=== PATIENT | male | born 1985 | race Caucasian/White ===

== ENCOUNTER 2020-10-25 15:21 | Emergency (ER) | payer OTHER ==
[~2020-10-25] VITALS: Ht 185.4 cm; Wt 86.2 kg
[2020-10-25] MEDS ORDERED: ALLERCLEAR10 MG PO (15:57)
== END 2020-10-25 16:59 | disposition home or self-care (01) ==
LOC: ER 15:21
DX: S06.0X9A Concussion with loss of consciousness of unspecified duration, initial encounter (principal); S40.012A Contusion of left shoulder, initial encounter; W22.8XXA Striking against or struck by other objects, initial encounter; Y93.89 Activity, other specified
CPT/HCPCS: 70450; 72125; 90471; 96374; 99284-25; A9270; J1885